=== PATIENT | female | born 1935 | race Caucasian/White ===

== ENCOUNTER → 2023-10-11 09:12 | Outpatient (REF) | payer MEDICARE, SELFPAY | LOC: HWRAD 09:12 | PROVIDERS: ATTENDING PHYSICIAN Obstetrics & Gynecology; FAMILY PHYSICIAN Nurse Practitioner | DX: Z78.0 Asymptomatic menopausal state (principal) | CPT/HCPCS: 77080 ==

== ENCOUNTER → 2024-04-26 10:06 | Outpatient (REF) | payer MEDICARE, SELFPAY | LOC: HWRCS 10:06 | PROVIDERS: ATTENDING PHYSICIAN Internal Medicine Cardiovascular Disease; FAMILY PHYSICIAN Internal Medicine | DX: R01.1 Cardiac murmur, unspecified (principal) | CPT/HCPCS: 93306 ==